=== PATIENT | male | born 1990 | race Caucasian/White ===

== ENCOUNTER 2022-12-13 11:31 | Emergency (ER) | payer OTHER ==
[~2022-12-13] VITALS: Ht 177.8 cm; Wt 93.5 kg
[2022-12-13 12:27] VITALS: BP 136/72
[2022-12-13] MEDS ORDERED: IBUP800T26 PO (13:38)
== END 2022-12-13 14:20 | disposition home or self-care (01) ==
LOC: ER 11:31
DX: S16.1XXA Strain of muscle, fascia and tendon at neck level, initial encounter (principal); V43.52XA Car driver injured in collision with other type car in traffic accident, initial encounter; Y93.89 Activity, other specified; Y92.488 Other paved roadways as the place of occurrence of the external cause; Y99.8 Other external cause status
CPT/HCPCS: 72040